=== PATIENT | female | born 1980 | race Caucasian/White ===

== ENCOUNTER 2019-02-28 04:57 | Day surgery (SDC) | payer OTHER ==
[2019-02-27 12:38] VITALS: BMI 30.4
--- NOTE | 2019-02-28 09:00 | HP ---
History & Physical Update - History History: No Change - Physical Physical: No Change - Assessment Assessment: No Change - Plan Plan: No Change (No change in HP)
[2019-02-28] MEDS ORDERED: ACETAMINOPHEN 325 MG TABLET (FP) PO PRN (09:03)
[2019-02-28] MEDS ORDERED: IBUPROFEN 400 MG TABLET (FP) PO PRN (09:03)
[2019-02-28] MEDS ORDERED: BUPIVACAINE HCL/PF 0.5% (5 MG/ML) 30 ML VIAL IJ ONE ×2 (10:21→11:30)
[2019-02-28] MEDS ORDERED: ROCURONIUM BROMIDE 50 MG/5 ML SYRINGE ONE (10:54)
[2019-02-28] MEDS ORDERED: fentaNYL CITRATE 250 MCG/5 ML VIAL ONE (10:54)
[2019-02-28] MEDS ORDERED: PROPOFOL 20 ML ONE (10:54)
[2019-02-28] MEDS ORDERED: LIDOCAINE HCL/PF 2% SDV 5ML VIAL ONE (10:55)
[2019-02-28] MEDS ORDERED: ONDANSETRON 4 MG/2 ML VIAL IVPUSH PRN (11:08)
[2019-02-28] MEDS ORDERED: PROMETHAZINE HCL 25 MG/1 ML VIAL IVPB PRN (11:08)
[2019-02-28] MEDS ORDERED: oxyCODONE HCL 5 MG TABLET PO PRN (11:08)
[2019-02-28] MEDS ORDERED: MIDAZOLAM HCL 2 MG/2 ML SINGLE DOSE VIAL ONE (11:10)
[2019-02-28] MEDS ORDERED: LACTATED RINGERS SOLUTION 1,000 ML IV SCH (11:15)
[2019-02-28] MEDS ORDERED: ceFAZolin SODIUM 1 GM VIAL ONE (11:17)
[2019-02-28] MEDS ORDERED: ceFAZolin SODIUM 1 GM VIAL IVPB ONE (11:27)
[2019-02-28] MEDS ORDERED: NEOSTIGMINE METHYLSULFATE 0.5 MG/ML - 10 ML MDV ONE (11:57)
[2019-02-28] MEDS ORDERED: GLYCOPYRROLATE 0.2 MG/1 ML VIAL ONE (11:58)
[2019-02-28] MEDS ORDERED: KETOROLAC TROMETHAMINE 30 MG/1 ML VIAL ONE (12:00)
--- NOTE | 2019-02-28 12:49 | OP ---
Operative Note - Note: Operative Date: 02/28/19 Pre-Operative Diagnosis: Elective salpingectomy Operation: Laprascopic bilateral salpingectomy Post-Operative Diagnosis: Same as Pre-op Surgeon: Pratima Moore Magento Web Developer: Tashi Rodríguez Anesthesiologist/CLIPPER AND TURNER: Concetta Sanchez Anesthesia: General Specimens Removed: Bilateral tubes Estimated Blood Loss (mls): 5 Drains, Volume Out (mls): 25 (dodge) Fluid Volume Replaced (mls): 600 (LR) Operative Report Dictated: Yes
--- NOTE | 2019-02-28 12:50 | SURG ---
Surgery Cushion Cover Inspector Note Cushion Cover Inspector: Tashi Rodríguez PA-C Date of Service: 02/28/19 Diagnosis: Elective sterilization Procedure: Laprascopic bilateral salpingectomy I was present for the entirety of the operative procedure. For further detail, please refer to operative report. Visit type - Case Type Case Type: Scheduled - New patient This patient is new to me today: Yes Date on this admission: 02/28/19
[2019-02-28 16:49] VITALS: BP 117/76; PULSE 72; TEMP 98
--- NOTE | 2019-03-01 18:26 | PATH ---
Surgical Pathology Report Patient Name: CAITLIN WEBER [facility]. Rec. #: [id number] /Age/Gender: 1980 (Age: 38) / F Account: [id number] Location: [facility] SURGICAL Taken: 02/28/2019 Received: 02/28/2019 Reported: 03/01/2019 Physicians: Pratima Moore M.D. Specimen(s) Received A: LEFT FALLOPIAN TUBE B: RIGHT FALLOPIAN TUBE Clinical History Desired sterility Final Diagnosis A. FALLOPIAN TUBE, LEFT, LAPAROSCOPIC SALPINGECTOMY: FALLOPIAN TUBE WITH PARATUBAL AND WALTHARD NEST CYSTS (INCLUDING FIMBRIATED END AND FULL LUMINAL PORTION). B. FALLOPIAN TUBE, RIGHT, LAPAROSCOPIC SALPINGECTOMY: FALLOPIAN TUBE WITH PARATUBAL AND WALTHARD NEST CYSTS (INCLUDING FIMBRIATED END AND FULL LUMINAL PORTION). Electronically Signed Olive Ochoa M.D. Gross Description A. Received in formalin labeled "left tube," is a 6.5 cm in length fimbriated fallopian tube. The outer surface is pink-xiao and smooth. Sectioning reveals an unremarkable lumen. Sales Coach sections are submitted in 2 cassettes as follows: 1-fimbria; 2-cross sections of fallopian tube. B. Received in formalin labeled "right tube," are 4 portions of fallopian tube ranging from 0.9-3.0 cm in length. The longest portion displays attached fimbria. The outer surfaces are xiao-pink and smooth with focal attached fat. Sectioning reveals an unremarkable lumen. Sales Coach sections are submitted in 2 cassettes as follows: 1-fimbria; 2-cross sections of fallopian tube. /02/28/2019 saudi02/28/2019
--- NOTE | 2019-03-21 13:51 | OP ---
DATE OF OPERATION: 02/28/2019 PREOPERATIVE DIAGNOSIS: Voluntary sterilization. PREOPERATIVE DIAGNOSIS: Voluntary sterilization. OPERATION: Bilateral laparoscopic salpingectomy. SURGEON: Pratima Moore MD MACHINE WELDER: ANESTHESIOLOGIST: Concetta Sanchez CRNA ANESTHESIA: General. FINDINGS: Normal tubes and ovaries. PROCEDURE: Patient was taken to the operating room, placed in dorsal lithotomy position, prepped and draped in the usual sterile fashion. A Flores catheter was placed into the bladder. Attention was then drawn to the umbilicus where a 5-mm umbilical incision was made. Veress needle was inserted into the cavity. Approximately 3-4 L of CO2 was insufflated in the cavity. Veress needle was then removed and an 8-mm trocar was then inserted. Two trocars were placed in the lower abdomen under direct visualization. Scalpel was then used to make the skin incision and trocars were inserted under direct visualization. A grasper and LigaSure were then used to grasp the left tube. Coagulation and cutting of the left tube was done to the cornual area of the uterus. Same procedure was repeated on the right side. Both tubes were then removed and submitted to Pathology. Hemostasis was achieved. CO2 was then removed from the abdomen. Incisions were then closed using 4-0 Biosyn suture in continuous fashion, after CO2 had been removed. The wound was washed and dressed. Patient tolerated procedure well. ESTIMATED BLOOD LOSS: 5 mL. PRATIMA MOORE M.D. AUTUMN/[id number]
== END 2019-02-28 16:40 | disposition home or self-care (01) ==
LOC: JASU-SURG 04:57
PROVIDERS: ATTEND Obstetrics & Gynecology
PROC: 0U574ZZ Destruction of Bilateral Fallopian Tubes, Percutaneous Endoscopic Approach (ICD-10-PCS; principal; 2019-02-28 11:45)
DX: Z30.2 Encounter for sterilization (principal)
CPT/HCPCS: 88302-TC; 94760